=== PATIENT | male | born 1970 | race American Indian/Alaskan Native ===

== ENCOUNTER 2021-04-05 07:16 | Emergency (ER) | payer MEDICARE ==
--- NOTE | 2021-04-05 07:44 | Emergency Department Report ---
Blank Doc - Documentation Documentation: 50-year-old male that has history of contracted esophageal with hiatal hernia abdominal pain with nausea vomiting. Patient that he is unable to keep anything down. Patient stated has not seen a GI doctor for the past 5 years. Patient stated prior to that he would get dilated esophagus procedure. 1- This is a initial triage assessment/medical screening only. Full assessment and work-up will be completed once the patient is in proper hospital gown, ED bed and in a private room setting. This initial assessment/diagnostic orders/clinical plan/ treatment(s) is/are subject to change based on pt's health status, clinical progression and re-assessment by fellow clinical providers in the ED. Further treatment and workup at subsequent clinical providers discretion. Patient/guardians urged not to elope from ED as their condition may be serious if not clinically assessed and managed. 2-labs 3-UA The patient was evaluated in the emergency department for symptoms described in the history of present illness. He/she was evaluated in the context of the global COVID-19 pandemic, which necessitated consideration that the patient might be at risk for infection with the virus that causes COVID-19. Institutional protocols and algorithms that pertain to the evaluation of patients at risk for COVID-19 are in a state of rapid change based on information released by regulatory bodies including the CDC and federal and state organizations. These policies and algorithms were followed during the patient's care in the emergency department. Please note that these policies, procedures and recommendations changed on a rapid basis.
[2021-04-05 08:51] LABS: Basophils % (Auto) 0.7 % (0.0-1.8); Eosinophils % (Auto) 0.6 % (0.0-4.3); Hematocrit 39.5 % (35.5-45.6); Hemoglobin 13.4 gm/dl (11.8-15.2); Lymphocytes # (Auto) 1.3 K/mm3 (1.2-5.4); Lymphocytes % (Auto) 24.9 % (13.4-35.0); Mean Corpuscular HGB Conc 34 % (32-34); Mean Corpuscular Volume 89 fl (84-94); Monocytes # (Auto) 0.5 K/mm3 (0.0-0.8); Monocytes % (Auto) 10.2 % (0.0-7.3); Red Blood Count 4.43 M/mm3 (3.65-5.03); Red Cell Distribution Width 14.3 % (13.2-15.2)
[2021-04-05 09:14] LABS: Alanine Aminotransferase 54 units/L (7-56); Albumin 4.1 g/dL (3.9-5); Blood Urea Nitrogen 5 mg/dL (9-20); Calcium 8.8 mg/dL (8.4-10.2); Hemolysis Index 14
[2021-04-05 09:17] LABS: Bilirubin,Urine NEG (Negative); Blood,Urine NEG (Negative); Color,Urine Yellow (Yellow); Mucus,Urine FEW /HPF; Protein,Urine <15 mg/dL mg/dL (Negative); WBC,Urine < 1.0 /HPF (0.0-6.0)
[2021-04-05 09:18] LABS: BUN/Creatinine Ratio 8
--- NOTE | 2021-04-05 09:23 | Event Note ---
Date: 04/12/21 I went to examine patien. I found him walking in the hallway asking phlebotomy if he will be transferred. I informed him that I am the physician in I am here to examine him. Upon entry into the room he instructs me that he no longer wants to be evaluated here and wants to go to the hospital. Patient then signed the AMA form. I was unable to obtain any history of present illness nor was able to examine patient. His IV was removed by nurse prior to this leaving. I offered him a copy of his lab work but he declined. Patient is ambulating, speaking on the phone, and does not appear to be in any acute distress. Lab Results 04/05/21 04/05/21 04/05/21 Range/Units 08:20 08:42 08:42 WBC 5.2 (4.5-11.0) K/mm3 RBC 4.43 (3.65-5.03) M/mm3 Hgb 13.4 (11.8-15.2) gm/dl Hct 39.5 (35.5-45.6) % MCV 89 (84-94) fl MCH 30 (28-32) pg MCHC 34 (32-34) % RDW 14.3 (13.2-15.2) % Lymph % (Auto) 24.9 (13.4-35.0) % [place] % (Auto) 10.2 H (0.0-7.3) % Eos % (Auto) 0.6 (0.0-4.3) % Baso % (Auto) 0.7 (0.0-1.8) % Lymph # (Auto) 1.3 (1.2-5.4) K/mm3 [place] # (Auto) 0.5 (0.0-0.8) K/mm3 Eos # (Auto) 0.0 (0.0-0.4) K/mm3 Baso # (Auto) 0.0 (0.0-0.1) K/mm3 Seg Neutrophils % 63.6 (40.0-70.0) % Seg Neutrophils # 3.3 (1.8-7.7) K/mm3 Sodium 140 (137-145) mmol/L Potassium 3.6 (3.6-5.0) mmol/L Chloride 103.3 (98-107) mmol/L Carbon Dioxide 23 (22-30) mmol/L Anion Gap 17 mmol/L BUN 5 L (9-20) mg/dL Creatinine 0.6 L (0.8-1.3) mg/dL Estimated GFR > 60 ml/min BUN/Creatinine Ratio 8 % Glucose 87 (75-100) mg/dL Calcium 8.8 (8.4-10.2) mg/dL Total Bilirubin 0.40 (0.1-1.2) mg/dL AST 38 (5-40) units/L ALT 54 (7-56) units/L Alkaline Phosphatase 53 (35-129) units/L Total Protein 7.4 (6.3-8.2) g/dL Albumin 4.1 (3.9-5) g/dL Albumin/Globulin Ratio 1.2 % Lipase 74 H (13-60) units/L Urine Bilirubin Neg (Negative) labs reviewed prior to pt leaving and do not reveal any significant abnormality other than mildly elevated lipase
[2021-04-05 09:24] LABS: RBC,Urine < 1.0 /HPF (0.0-6.0)
--- NOTE | 2021-04-05 09:47 | Emergency Department Report ---
ED Abdominal Pain HPI - General Chief Complaint: Abdominal Pain Stated Complaint: HERNIA Time Seen by Provider: 04/05/21 07:39 Source: patient Mode of arrival: Wheelchair Limitations: No Limitations - History of Present Illness Initial Comments: Patient initially signed out AGAINST MEDICAL ADVICE and then came back to the room and decided he wanted to be evaluated 50-year-old male with a past medical history of hiatal hernia, esophageal strictures requiring dilatation, and GERD presents to the hospital complaining of inability to eat or drink x1 week worsening for the last 3 days. Patient states even liquid feels like is getting stuck in his upper part of his chest was causing an uncomfortable feeling in his chest and he regurgitates everything he takes p.o. Patient has been able to eat anything for the last 3 days. History of the same in the past requiring esophageal dilation 5 years ago. Patient has been noncompliant with Nexium for the last 2 weeks. Patient was at [facility] last the but complained of chest pain at that time. He spoke to a real estate broker associate Dr. Stokes with [facility] in [place] and was urged to return to the ER and explain that his symptoms are related to swallowing difficulties instead of a primary complaint of chest pain Severity scale (0 -10): 6 - Related Data Previous Rx's Medication Instructions Recorded Last Taken Type Pantoprazole [Protonix] 40 mg PO QDAY #30 tablet 04/05/21 Unknown Rx Allergies Allergy/AdvReac Type Severity Reaction Status Date / Time shellfish derived Allergy Hives Verified 04/05/21 07:36 ED Review of Systems ROS: Stated complaint: HERNIA Other details as noted in HPI Comment: All other systems reviewed and negative ED Past Medical Hx - Past Medical History Hx Hypertension: Yes Additional medical history: hernia/spinal stenosis/ legal blind - Surgical History Hx Cholecystectomy: Yes Additional Surgical History: 2 eye surgery right eye - Medications Home Medications: Home Medications Medication Instructions Recorded Confirmed Last Taken Type Pantoprazole [Protonix] 40 mg PO QDAY #30 tablet 04/05/21 Unknown Rx ED Physical Exam - General Limitations: No Limitations - Other Other exam information: General: No acute distress Head: Atraumatic Eyes: normal appearance Neck: Normal appearance, no midline tenderness Chest: Clear to auscultation bilaterally CV: Regular rate and rhythm Abdomen: Soft, normal bowel sounds, nontender, nondistended, no rebound or guarding Back: Normal inspection Extremity: Normal inspection, full range of motion Neuro: Alert O x 3, no facial asymmetry, speech clear, no gross motor sensory deficit Psych: Appropriate behavior Skin: No rash ED Course Vital Signs 04/05/21 04/05/21 04/05/21 07:42 13:00 13:18 Temperature 98.5 F 97.8 F 98 F Pulse Rate 83 81 86 Respiratory 20 14 24 Rate Blood Pressure 122/80 126/75 Blood Pressure 139/89 [Right] O2 Sat by Pulse 98 100 100 Oximetry 04/05/21 04/05/21 04/05/21 13:25 13:26 13:28 Temperature Pulse Rate 86 76 Respiratory 20 16 Rate Blood Pressure 120/79 Blood Pressure 120/79 [Right] O2 Sat by Pulse 98 95 99 Oximetry - Reevaluation(s) Reevaluation #1: 04/05/21 13:44 Patient's daughter called to inquire about the message left by Dr. Michael Oleary. I spoke to Dr. Oleary and he states he left a message explaining endoscopy findings and follow-up scheduled for the . I spoke to daughter and explained the results based on Dr. Oleary's note and his need for follow-up on the and that he needs to take his medication Reevaluation #2: 04/05/21 14:58 pt alert receiving sedation for endoscopy. Nurse instructed to ambulate patient at discharge stable. Patient states he can call a ride to pick him up from the hospital - Consultations Consultation #1: 04/05/21 10:[address] Oleary GI on-call. Patient can receive endoscopy today however, he is not available and the next 4-6 hours. ED Medical Decision Making - Lab Data Result diagrams: 04/05/21 08:42 04/05/21 08:42 Lab Results 04/05/21 04/05/21 04/05/21 Range/Units 08:20 08:42 08:42 WBC 5.2 (4.5-11.0) K/mm3 RBC 4.43 (3.65-5.03) M/mm3 Hgb 13.4 (11.8-15.2) gm/dl Hct 39.5 (35.5-45.6) % MCV 89 (84-94) fl MCH 30 (28-32) pg MCHC 34 (32-34) % RDW 14.3 (13.2-15.2) % Plt Count 185 (140-440) K/mm3 Lymph % (Auto) 24.9 (13.4-35.0) % [place] % (Auto) 10.2 H (0.0-7.3) % Eos % (Auto) 0.6 (0.0-4.3) % Baso % (Auto) 0.7 (0.0-1.8) % Lymph # (Auto) 1.3 (1.2-5.4) K/mm3 [place] # (Auto) 0.5 (0.0-0.8) K/mm3 Eos # (Auto) 0.0 (0.0-0.4) K/mm3 Baso # (Auto) 0.0 (0.0-0.1) K/mm3 Seg Neutrophils % 63.6 (40.0-70.0) % Seg Neutrophils # 3.3 (1.8-7.7) K/mm3 Sodium 140 (137-145) mmol/L Potassium 3.6 (3.6-5.0) mmol/L Chloride 103.3 (98-107) mmol/L Carbon Dioxide 23 (22-30) mmol/L Anion Gap 17 mmol/L BUN 5 L (9-20) mg/dL Creatinine 0.6 L (0.8-1.3) mg/dL Estimated GFR > 60 ml/min BUN/Creatinine Ratio 8 % Glucose 87 (75-100) mg/dL Calcium 8.8 (8.4-10.2) mg/dL Total Bilirubin 0.40 (0.1-1.2) mg/dL AST 38 (5-40) units/L ALT 54 (7-56) units/L Alkaline Phosphatase 53 (35-129) units/L Total Protein 7.4 (6.3-8.2) g/dL Albumin 4.1 (3.9-5) g/dL Albumin/Globulin Ratio 1.2 % Lipase 74 H (13-60) units/L Urine Color Yellow (Yellow) Urine Turbidity Clear (Clear) Urine pH 6.0 (5.0-7.0) Ur Specific [place] 1.006 (1.003-1.030) Urine Protein <15 mg/dl (Negative) mg/dL Urine Glucose (UA) Neg (Negative) mg/dL Urine Ketones Neg (Negative) mg/dL Urine Blood Neg (Negative) Urine Nitrite Neg (Negative) Urine Bilirubin Neg (Negative) Urine Urobilinogen 2.0 (<2.0) mg/dL Ur Leukocyte Esterase Neg (Negative) Urine WBC (Auto) < 1.0 (0.0-6.0) /HPF Urine RBC (Auto) < 1.0 (0.0-6.0) /HPF Urine Mucus Few /HPF - Medical Decision Making 50-year-old male complaining of difficulty swallowing and feeling like food and liquid getting stuck in his esophagus. EGD did not reveal any stricture. Biopsies taken. Recommendation for p.o. Protonix upon discharge. Patient has a follow-up appointment scheduled with GI Critical Care Time: No Critical care attestation.: If time is entered above; I have spent that time in minutes in the direct care of this critically ill patient, excluding procedure time. ED Disposition Clinical Impression: Esophageal dysphagia, GERD with esophagitis Disposition: HOME / SELF CARE / HOMELESS Is pt being admited?: No Does the pt Need Aspirin: No Condition: Stable Instructions: Dysphagia, Gastroesophageal Reflux Disease, Adult, Moderate Conscious Sedation, Adult, Care After Additional Instructions: Take the medication as prescribed. Follow-up with your doctor or doctor/clinic provided. Return if symptoms worsen as indicated by your discharge instructions. Prescriptions: Pantoprazole [Protonix] 40 mg PO QDAY #30 tablet Referrals: REGINO WATSON MD [Primary Care Provider] - 3-5 Days Leena williamson MD [Other] - 7-10 days (as scheduled ) Time of Disposition: 15:00
[2021-04-05 09:58] LABS: Platelet Count 185 K/mm3 (140-440)
[2021-04-05] MEDS ORDERED: PANTOPRAZOLE 40 MG INJ IV ONE (10:19)
[2021-04-05] MEDS ORDERED: SODIUM CHLORIDE 0.9% 1000 ML 0 ML ONE (10:56)
[2021-04-05] MEDS ORDERED: D5W/0.9% NACL 1,000 ML IV SCH (11:00)
[2021-04-05] MEDS ORDERED: WATER FOR IRRIG STERILE 1,000 ML BOTTLE ONE ×2 (11:00→11:02)
[2021-04-05] MEDS ORDERED: WATER FOR IRRIG STERILE 250 ML BOTTLE IR ONE (11:00)
[2021-04-05] MEDS ORDERED: GLYCOPYRROLATE 0.4 MG/2 ML INJ ONE (12:53)
[2021-04-05] MEDS ORDERED: propofoL 200 MG/20 ML VIAL IV ONE ×3 (12:54)
[2021-04-05] MEDS ORDERED: MIDAZOLAM 2 MG/2 ML INJ ONE (12:54)
[2021-04-05] MEDS ORDERED: fentaNYL 100 MCG/2 ML INJ ONE (12:54)
--- NOTE | 2021-04-05 12:57 | Gastroenterology Consultation ---
History of Present Illness - Reason for Consult Consult date: 04/05/21 Dysphagia Requesting physician: ENE RAYMUNDO - History of Present Illness The patient is a 50 yo male seen in the ER for dysphagia. He has seen many GI MDs in the past for this; his last EGD in our office system was 2014 in [facility]. A motility study was recommended, since the EGD showed only mild esophagitis, but it was not completed. He says he has substernal burning and dysphagia to the point that he can't swallow water x 3 days. He has no sensation of stuck food. There is no hematemesis or melena. He denies any significant weight loss. 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) Past Surgical History: cholecystectomy, Other (Eye surgery) Social history: denies: alcohol abuse, prescription drug abuse Family history: no significant family history Medications and Allergies Allergies Allergy/AdvReac Type Severity Reaction Status Date / Time shellfish derived Allergy Hives Verified 04/05/21 07:36 Active Meds: Active Medications Dextrose/Sodium Chloride (D5ns) 1,000 mls @ 150 mls/hr IV DIRECT CLAUDIA Last Admin: 04/05/21 11:27 Dose: 150 mls/hr Documented by: I HAVE REVIEWED/RECONCILED MEDICATIONS Review of Systems - Review of Systems All systems: negative (as noted in the HPI) Exam - Constitutional Vital Signs: Temp Pulse Resp BP Pulse Ox 98.5 F 83 20 139/89 98 04/05/21 07:42 04/05/21 07:42 04/05/21 07:42 04/05/21 07:42 04/05/21 07:42 General appearance: no acute distress - EENT Eyes: PERRL, EOM intact ENT: hearing intact, clear oral mucosa - Neck Neck: supple, normal ROM - Respiratory Respiratory effort: normal Respiratory: bilateral: CTA - Cardiovascular Rhythm: regular Heart Sounds: Present: S1 & S2 Extremities: no ischemia, No edema - Gastrointestinal General gastrointestinal: Present: soft, non-tender, non-distended - Integumentary Integumentary: Present: clear, warm, dry - Neurologic Neurological: alert and oriented x3 - Labs CBC & Chem 7: 04/05/21 08:42 04/05/21 08:42 Lab Results: Laboratory Results - last 24 hr 04/05/21 04/05/21 04/05/21 08:20 08:42 08:42 WBC 5.2 RBC 4.43 Hgb 13.4 Hct 39.5 MCV 89 MCH 30 MCHC 34 RDW 14.3 Plt Count 185 Lymph % (Auto) 24.9 [place] % (Auto) 10.2 H Eos % (Auto) 0.6 Baso % (Auto) 0.7 Lymph # (Auto) 1.3 [place] # (Auto) 0.5 Eos # (Auto) 0.0 Baso # (Auto) 0.0 Seg Neutrophils % 63.6 Seg Neutrophils # 3.3 Sodium 140 Potassium 3.6 Chloride 103.3 Carbon Dioxide 23 Anion Gap 17 BUN 5 L Creatinine 0.6 L Estimated GFR > 60 BUN/Creatinine Ratio 8 Glucose 87 Calcium 8.8 Total Bilirubin 0.40 AST 38 ALT 54 Alkaline Phosphatase 53 Total Protein 7.4 Albumin 4.1 Albumin/Globulin Ratio 1.2 Lipase 74 H Urine Color Yellow Urine Turbidity Clear Urine pH 6.0 Ur Specific [place] 1.006 Urine Protein <15 mg/dl Urine Glucose (UA) Neg Urine Ketones Neg Urine Blood Neg Urine Nitrite Neg Urine Bilirubin Neg Urine Urobilinogen 2.0 Ur Leukocyte Esterase Neg Urine WBC (Auto) < 1.0 Urine RBC (Auto) < 1.0 Urine Mucus Few Assessment and Plan - Patient Problems (1) Esophageal dysphagia Current Visit: Yes Status: Acute Plan to address problem: - We will plan upper endoscopy. - Patient to start protonix. - Depending on EGD results, may need admission of mass or other unexpected finding. (2) GERD with esophagitis Current Visit: Yes Status: Acute
--- NOTE | 2021-04-05 13:13 | Anesthesia Day of Surgery ---
Anesthesia Day of Surgery - Day of Surgery Patient Examined: Yes Patient H&P Reviewed: Yes Patient is NPO: Yes
--- NOTE | 2021-04-05 13:17 | Anesthesia Consultation ---
Anesthesia Consult and Med Hx Date of service: 04/05/21 - Airway Anesthetic Teeth Evaluation: Good ROM Head & Neck: Adequate Mental/Hyoid Distance: Adequate Mallampati Class: Class II Intubation Access Assessment: Good - Pre-Operative Health Status ASA Pre-Surgery Classification: ASA2, Emergency Proposed Anesthetic Plan: MAC - Cardiovascular System Hx Hypertension: Yes - Central Nervous System Hx Neuromuscular Disorder: Yes (Legally blind) Hx Back Pain: Yes (Spinal stenosis) - Gastrointestinal Hx Gastroesophageal Reflux Disease: Yes (Hx esophageal strictures) - Hematic Hx Anemia: No - Other Systems Hx Alcohol Use: Yes
--- NOTE | 2021-04-05 13:30 | Post Operative Note ---
Pre-op diagnosis: Dysphagia, GERD Post-op diagnosis: same Findings: 1. Mildly tortuous lower esophagus with erythema but no stricture/stenosis/mass - Cold bx 2. Normal stomach 3. Normal duodenum Procedure: EGD with cold biopsy Anesthesia: MAC Surgeon: LIVAN SAUCEDO Estimated blood loss: minimal Pathology: list (1. Lower/mid esophagus (esophagitis)) Specimen disposition: to lab Condition: stable Disposition: other (Recs: 1. OK to discharge patient home with PO protonix QD Rx. 2. Patient to follow up in our clinic for a motility study.)
--- NOTE | 2021-04-05 13:49 | Operative Report ---
DATE OF SURGERY: 04/05/2021 PROCEDURE PERFORMED: Esophagogastroduodenoscopy with cold biopsy. PREOPERATIVE DIAGNOSES: Esophageal dysphagia and gastroesophageal reflux disease. POSTOPERATIVE DIAGNOSES: Esophageal dysphagia and gastroesophageal reflux disease. ENDOSCOPIST: Michael Oleary MD INSTRUMENT: Olympus video endoscope. MEDICATIONS: MAC anesthesia by anesthesia services. COMPLICATIONS: No apparent complications. ESTIMATED BLOOD LOSS: Minimal. SPECIMENS: Lower and mid esophagus to rule out esophagitis. IMPLANTS: None. ASSISTANTS: None. CONDITION AT COMPLETION: Stable. TECHNIQUE: The patient was informed of the risks and benefits of the procedure. He signed the informed consent to proceed. He was placed in the left lateral decubitus position. The above sedative medications were given. His vital signs remained stable throughout the procedure. The instrument was advanced from the mouth to the second portion of the duodenum under direct visualization. At that point, the bowel was insufflated and the endoscope was slowly withdrawn. FINDINGS: 1. Normal duodenum. 2. Normal stomach. 3. Mildly tortuous lower esophagus with erythema, but no stricture, stenosis, or mass seen. A. Cold biopsy was taken. RECOMMENDATIONS: 1. Okay to discharge the patient home with oral Protonix daily therapy. 2. The patient is to follow up in our clinic for motility study. TID: [id number] RECEIPT: [id number] LAMBERTO/GISSELLE
[2021-04-05 13:51] VITALS: BP 120/79
--- NOTE | 2021-04-05 14:51 | Post Anesthesia Evaluation ---
- Post Anesthesia Evaluation Patient Participated: Yes Airway Patent: Yes Stable Respiratory Function: Yes Nausea/Vomiting: No Temp > 96.8F: Yes Pain Manageable: Yes Adequeate Hydration: Yes Anesthesia Complications: No Block Receding Appropriately: Not Applicable Patient on Ventilator: No
== END 2021-04-05 15:23 | disposition home or self-care (01) ==
LOC: ED 07:16
DX: R13.14 Dysphagia, pharyngoesophageal phase (principal); K21.00 Gastro-esophageal reflux disease with esophagitis, without bleeding; I10 Essential (primary) hypertension; K46.9 Unspecified abdominal hernia without obstruction or gangrene; M48.00 Spinal stenosis, site unspecified; Z98.890 Other specified postprocedural states; Z91.013 Allergy to seafood
CPT/HCPCS: 36415; 43239; 80053; 81001; 83690; 85025; 88305; 96361; 96374; 99284; C9113; J2250; J2704; J3010; J7042; 88312; J7030

== ENCOUNTER 2022-04-13 15:38 | Emergency (ER) | payer MEDICARE ==
--- NOTE | 2022-04-13 20:13 | Emergency Department Report ---
ED ENT HPI - General Chief complaint: Dental/Oral Stated complaint: ABCESS R SIDE MOUTH Time Seen by Provider: 04/13/22 20:06 Source: patient Mode of arrival: Ambulatory Limitations: No Limitations - History of Present Illness Initial comments: Patient with right mandibular tooth pain for the last couple weeks and now increasing swelling in the area. Denies fever or chills. He was told about 6 weeks ago that he needs a root canal but he states "the dentist was so young I was nervous about him in my mouth." - Related Data Previous Rx's Medication Instructions Recorded Last Taken Type Pantoprazole [Protonix] 40 mg PO QDAY #30 tablet 04/05/21 Unknown Rx Ibuprofen [Motrin 600 MG tab] 600 mg PO Q8H PRN #20 tablet 04/13/22 Unknown Rx Penicillin V Potassium 500 mg PO QID #30 tab 04/13/22 Unknown Rx Allergies Allergy/AdvReac Type Severity Reaction Status Date / Time shellfish derived Allergy Hives Verified 04/13/22 16:21 ED Dental HPI - General Chief complaint: Dental/Oral Stated complaint: ABCESS R SIDE MOUTH Time Seen by Provider: 04/13/22 20:06 Source: patient Mode of arrival: Ambulatory Limitations: No Limitations - Related Data Previous Rx's Medication Instructions Recorded Last Taken Type Pantoprazole [Protonix] 40 mg PO QDAY #30 tablet 04/05/21 Unknown Rx Ibuprofen [Motrin 600 MG tab] 600 mg PO Q8H PRN #20 tablet 04/13/22 Unknown Rx Penicillin V Potassium 500 mg PO QID #30 tab 04/13/22 Unknown Rx Allergies Allergy/AdvReac Type Severity Reaction Status Date / Time shellfish derived Allergy Hives Verified 04/13/22 16:21 ED Review of Systems ROS: Stated complaint: ABCESS R SIDE MOUTH Other details as noted in HPI Constitutional: denies: chills, fever Eyes: denies: eye pain, eye discharge, vision change ENT: denies: ear pain, throat pain Respiratory: denies: cough, shortness of breath, wheezing Cardiovascular: denies: chest pain, palpitations Endocrine: no symptoms reported Gastrointestinal: denies: abdominal pain, nausea, diarrhea Genitourinary: denies: urgency, dysuria Musculoskeletal: denies: back pain, joint swelling, arthralgia Skin: denies: rash, lesions Neurological: denies: headache, weakness, paresthesias Psychiatric: denies: anxiety, depression Hematological/Lymphatic: denies: easy bleeding, easy bruising ED Past Medical Hx - Past Medical History Hx Hypertension: Yes Additional medical history: hernia/spinal stenosis/ legal blind - Surgical History Hx Cholecystectomy: Yes Additional Surgical History: 2 eye surgery right eye - Social History Smoking Status: Never Smoker Substance Use Type: None - Medications Home Medications: Home Medications Medication Instructions Recorded Confirmed Last Taken Type Pantoprazole [Protonix] 40 mg PO QDAY #30 tablet 04/05/21 Unknown Rx Ibuprofen [Motrin 600 MG tab] 600 mg PO Q8H PRN #20 tablet 04/13/22 Unknown Rx Penicillin V Potassium 500 mg PO QID #30 tab 04/13/22 Unknown Rx ED Physical Exam - General Limitations: No Limitations General appearance: alert, in no apparent distress - Head Head exam: Present: atraumatic, normocephalic - Eye Eye exam: Present: normal appearance - ENT ENT exam: Present: mucous membranes moist, other (Right mandibular dentition with mild caries but a moderate sized fluctuant mass along the buccal gingiva.) - Neck Neck exam: Present: normal inspection, full ROM. Absent: tenderness, meningismus, lymphadenopathy - Respiratory Respiratory exam: Present: normal lung sounds bilaterally. Absent: respiratory distress, wheezes, stridor - Cardiovascular Cardiovascular Exam: Present: regular rate, normal rhythm. Absent: systolic murmur, diastolic murmur, rubs, gallop - GI/Abdominal GI/Abdominal exam: Present: soft, normal bowel sounds - Rectal Rectal exam: Present: deferred - Extremities Exam Extremities exam: Present: normal inspection - Back Exam Back exam: Present: normal inspection - Neurological Exam Neurological exam: Present: alert, oriented X3 - Psychiatric Psychiatric exam: Present: normal affect, normal mood - Skin Skin exam: Present: warm, dry, intact, normal color. Absent: rash ED Course Vital Signs 04/13/22 16:16 Temperature 98.1 F Pulse Rate 104 H Respiratory 18 Rate Blood Pressure 118/73 [Right] O2 Sat by Pulse 100 Oximetry - Reevaluation(s) Reevaluation #1: 04/13/22 20:09 Abscess I&D performed tramadol given. - I & D Right Lower Jaw Type of Procedure: Simple Site: Right mandibular gingival/periapical area Blade Size: 11 Progress: 11 blade utilized to do a stab incision at the center of the area of fluctuance with a moderate amount of purulent drainage and immediate improvement of the patient's pain which continue to gradually improve during the remainder of stay. Discussed with him use of heat not ice as well as warm salt water/hydrogen peroxide swish and spit. Antibiotics. Patient tolerated procedure well and was sent home with a basin for further drainage. ED Medical Decision Making - Medical Decision Making Patient with right mandibular dental abscess. Told he needs a root canal 6 weeks ago. I&D performed here. Pen-Vee K and dental referral. Return if worse. Critical care attestation.: If time is entered above; I have spent that time in minutes in the direct care of this critically ill patient, excluding procedure time. ED Disposition Clinical Impression: Dental abscess Disposition: 01 HOME / SELF CARE / HOMELESS Is pt being admited?: No Condition: Stable Instructions: Dental Abscess, Utim-eo-Cohm Additional Instructions: Warm salt water swish and spit (may mix [id number] with hydrogen peroxide). Do this at least 4 times daily. Antibiotics. Dental follow-up. Prescriptions: Ibuprofen [Motrin 600 MG tab] 600 mg PO Q8H PRN #20 tablet PRN Reason: Pain Penicillin V Potassium 500 mg PO QID #30 tab Referrals: PRIMARY CARE, [Primary Care Provider] - 3-5 Days Forms: Work/School Release Form(ED) Time of Disposition: 20:21
[2022-04-13] MEDS ORDERED: IBUPROFEN 800 MG TAB PO ONE (20:34)
[2022-04-13 20:40] VITALS: BP 138/90
== END 2022-04-13 21:01 | disposition home or self-care (01) ==
LOC: ED 15:38
DX: K04.7 Periapical abscess without sinus (principal); I10 Essential (primary) hypertension; Z90.49 Acquired absence of other specified parts of digestive tract; Z91.013 Allergy to seafood
CPT/HCPCS: 99282